=== PATIENT | male | born 1990 | race Caucasian/White ===

== ENCOUNTER 2016-11-15 16:36 | Emergency (ER) | payer OTHER ==
[~2016-11-15] VITALS: Ht 187.9 cm; Wt 117.9 kg
[~2016-11-15 16:36] MED LIST: AMOXICILLIN500 MG PO; ATARAX50 MG PO; CLARITIN10 MG PO; CORDROL20 MG PO; DUONEB 3 MG/3 ML3 M1 INH; ELIMITE 5%60 GM PO; ELIMITE 5%60 GM TP; Elimite 5%60 GM TP; HYCODAN/HYDROMET5 ML PO; HYDROCODONE BIT1 T11 PO; KEFLEX500 MG PO; LEVAQUIN750 MG PO; LOMOTIL 0.025 M1 TA1 PO; MEDROL DOSEPAK4 MG PO; MOTRIN800 MG PO; NAPROSYN500 MG PO; NO DAILY MEDS; NORCO 325 MG-51 TAB PO; PREDNISONE10 MG PO; PROVENTIL0.09 MG/A1 INH; SEPTRA DS 800 M1 TAB PO; TRAMADOL HCL50 MG PO; VENTOLIN 02.5 MG/3 M INH; VIBRAMYCIN100 MG PO; VISTARIL25 MG PO; ZITHROMAX250 MG PO; ZOFRAN ODT4 MG SL; ZOFRAN4 MG PO
[2016-11-15] MEDS ORDERED: NAPROSYN500 MG PO (16:58)
[2016-11-15] MEDS ORDERED: 'PARAFON FORTE500 M1 PO (16:58)
[2016-11-15 17:15] VITALS: BP 144/104
== END 2016-11-15 18:00 | disposition home or self-care (01) ==
LOC: ED 16:36
DX: S16.1XXA Strain of muscle, fascia and tendon at neck level, initial encounter (principal); S29.012A Strain of muscle and tendon of back wall of thorax, initial encounter; F17.200 Nicotine dependence, unspecified, uncomplicated; V89.2XXA Person injured in unspecified motor-vehicle accident, traffic, initial encounter; Y93.89 Activity, other specified; Y92.413 State road as the place of occurrence of the external cause; Y99.9 Unspecified external cause status

== ENCOUNTER 2017-04-04 00:59 | Emergency (ER) | payer OTHER ==
[~2017-04-04] VITALS: Ht 187.9 cm; Wt 129.3 kg
[~2017-04-04 00:59] MED LIST changes: +'PARAFON FORTE500 M1 PO
[2017-04-04 01:21] VITALS: BP 149/96
[2017-04-04] MEDS ORDERED: DELTASONE20 M1 PO (01:44)
[2017-04-04] MEDS ORDERED: PEPCID20 MG PO (01:44)
[2017-04-04] MEDS ORDERED: BENADRYL ALLERG25 M5 PO (01:44)
== END 2017-04-04 02:05 | disposition home or self-care (01) ==
LOC: ED 00:59
DX: L50.9 Urticaria, unspecified (principal); F32.9 Major depressive disorder, single episode, unspecified

== ENCOUNTER 2017-11-21 11:00 | Emergency (ER) | payer SELFPAY ==
[~2017-11-21] VITALS: Ht 187.9 cm; Wt 129.3 kg
[~2017-11-21 11:00] MED LIST changes: +BENADRYL ALLERG25 M5 PO; +DELTASONE20 M1 PO; +PEPCID20 MG PO
[2017-11-21 11:05] VITALS: BP 150/97
[2017-11-21 11:23] LABS: BASO # 0.1 10*3/uL (0.0-0.1); BASO % 0.6 % (0.0-1.0); EOS # 0.6 10*3/uL (0.0-0.4); EOS % 5.1 % (1.0-4.0); HEMATOCRIT 49.9 % (42.0-52.0); HEMOGLOBIN 17.5 g/dl (14.0-18.0); LYMPH # 2.1 10*3/uL (1.3-4.4); LYMPH % 19.5 % (27.0-41.0); MEAN CORPUSCULAR HGB 29.5 pg (27.0-31.0); MEAN CORPUSCULAR HGB CONC 35.1 g/dl (33.0-37.0); MEAN PLATELET VOLUME 10.8 fl (9.6-12.3); MONO # 0.6 10*3/uL (0.1-1.0); MONO % 5.7 % (3.0-9.0); NEUT # 7.5 10*3/uL (2.3-7.9); NEUT % 68.7 % (47.0-73.0); PLATELET COUNT AUTOMATED 224 10*3/uL (130-400); RED BLOOD COUNT 5.94 10*6/uL (4.50-5.90); RED CELL DISTRI WIDTH 12.3 % (0-14.5); WHITE BLOOD COUNT 10.9 10*3/uL (4.8-10.8)
[2017-11-21 11:37] LABS: ALBUMIN 3.6 gm/dl (3.1-4.5); ALKALINE PHOSPHATASE 83 U/L (45-117); BUN 10 mg/dl (7-24); CHLORIDE 102 mmol/L (98-107); CREATININE 0.98 mg/dL (0.70-1.30); LIPASE 90 U/L (73-393); POTASSIUM 4.1 mmol/L (3.5-5.1); SGOT/AST 34 IU/L (3-35); SGPT/ALT 74 U/L (12-78); SODIUM 138 mmol/L (136-145); TOTAL PROTEIN 7.6 gm/dL (6.4-8.2)
[2017-11-21] MEDS ORDERED: ZOFRAN4 MG PO (11:56)
== END 2017-11-21 12:41 | disposition home or self-care (01) ==
LOC: ED 11:00
PROVIDERS: Nurse Practitioner Family
DX: K52.9 Noninfective gastroenteritis and colitis, unspecified (principal); R03.0 Elevated blood-pressure reading, without diagnosis of hypertension

== ENCOUNTER 2017-12-26 12:04 | Emergency (ER) | payer SELFPAY ==
[~2017-12-26] VITALS: Ht 187.9 cm; Wt 129.3 kg
[2017-12-26 12:30] VITALS: BP 129/86
[2017-12-26] MEDS ORDERED: AMOXICILLIN500 M2 PO (13:06)
== END 2017-12-26 13:26 | disposition home or self-care (01) ==
LOC: ED 12:04
DX: K08.89 Other specified disorders of teeth and supporting structures (principal); Z79.899 Other long term (current) drug therapy

== ENCOUNTER 2017-12-31 18:15 | Emergency (ER) | payer SELFPAY ==
[~2017-12-31] VITALS: Ht 187.9 cm; Wt 129.3 kg
[~2017-12-31 18:15] MED LIST changes: +AMOXICILLIN500 M2 PO
[2017-12-31 18:21] VITALS: BP 147/81
[2017-12-31] MEDS ORDERED: CLINDAMYCIN HC300 MG PO (18:42)
[2017-12-31] MEDS ORDERED: NAPROSYN500 MG PO (18:42)
== END 2017-12-31 18:52 | disposition home or self-care (01) ==
LOC: ED 18:15
DX: K08.89 Other specified disorders of teeth and supporting structures (principal); K04.7 Periapical abscess without sinus

== ENCOUNTER 2018-03-10 10:51 | Emergency (ER) | payer SELFPAY ==
[~2018-03-10] VITALS: Ht 187.9 cm; Wt 129.3 kg
[~2018-03-10 10:51] MED LIST changes: +CLINDAMYCIN HC300 MG PO
[2018-03-10 10:52] VITALS: BP 137/99
[2018-03-10] MEDS ORDERED: AMOXICILLIN500 M2 PO (11:06)
[2018-03-10] MEDS ORDERED: FLONASE ALLERG9.9 ML NAS (11:06)
[2018-03-10] MEDS ORDERED: ZYRTEC10 MG PO (11:06)
== END 2018-03-10 11:45 | disposition home or self-care (01) ==
LOC: ED 10:51
DX: J01.90 Acute sinusitis, unspecified (principal)

== ENCOUNTER 2018-04-21 18:28 | Emergency (ER) | payer SELFPAY ==
[~2018-04-21] VITALS: Ht 187.9 cm; Wt 129.3 kg
[~2018-04-21 18:28] MED LIST changes: +FLONASE ALLERG9.9 ML NAS; +ZYRTEC10 MG PO
[2018-04-21 19:12] VITALS: BP 165/83
[2018-04-21] MEDS ORDERED: CYCLOBENZAPRINE5 M3 PO (20:33)
[2018-04-21] MEDS ORDERED: PREDNISONE10 MG PO (20:38)
== END 2018-04-21 20:07 | disposition home or self-care (01) ==
LOC: ED 18:28
DX: M54.5 Low back pain (principal); Z79.899 Other long term (current) drug therapy; X50.1XXA Overexertion from prolonged static or awkward postures, initial encounter; Y93.89 Activity, other specified; Y92.89 Other specified places as the place of occurrence of the external cause; Y99.9 Unspecified external cause status

== ENCOUNTER 2019-12-21 13:36 | Emergency (ER) | payer SELFPAY ==
[~2019-12-21] VITALS: Ht 187.9 cm; Wt 154.2 kg
[~2019-12-21 13:36] MED LIST changes: +CYCLOBENZAPRINE5 M3 PO
[2019-12-21 13:42] VITALS: BP 150/88
[2019-12-21 14:30] LABS: BASO % 0.3 % (0.0-1.0); EOS # 0.1 10*3/uL (0.0-0.4); EOS % 1.5 % (1.0-4.0); HEMATOCRIT 50.2 % (42.0-52.0); HEMOGLOBIN 17.1 g/dl (14.0-18.0); LYMPH # 1.2 10*3/uL (1.3-4.4); LYMPH % 12.4 % (27.0-41.0); MEAN CELL VOLUME 86.7 fl (80.0-94.0); MEAN CORPUSCULAR HGB 29.5 pg (27.0-31.0); MEAN CORPUSCULAR HGB CONC 34.1 g/dl (33.0-37.0); MEAN PLATELET VOLUME 10.7 fl (9.6-12.3); MONO % 10.8 % (3.0-9.0); NEUT % 74.5 % (47.0-73.0); PLATELET COUNT AUTOMATED 188 10*3/uL (130-400); RED BLOOD COUNT 5.79 10*6/uL (4.50-5.90); RED CELL DISTRI WIDTH 12.1 % (0-14.5); WHITE BLOOD COUNT 9.4 10*3/uL (4.8-10.8)
[2019-12-21 14:46] LABS: ALBUMIN 3.5 gm/dl (3.1-4.5); ALKALINE PHOSPHATASE 92 U/L (45-117); BUN 12 mg/dl (7-24); CHLORIDE 101 mmol/L (98-107); CREATININE 1.02 mg/dL (0.70-1.30); POTASSIUM 4.1 mmol/L (3.5-5.1); SGOT/AST 37 IU/L (3-35); SGPT/ALT 81 U/L (12-78); SODIUM 136 mmol/L (136-145); TOTAL PROTEIN 7.2 gm/dL (6.4-8.2)
[2019-12-21] MEDS ORDERED: ZOFRAN4 MG PO (15:14)
[2019-12-21] MEDS ORDERED: TAMIFLU 75MG CA75 MG PO (15:14)
== END 2019-12-21 15:17 | disposition home or self-care (01) ==
LOC: ED 13:36
PROVIDERS: Nurse Practitioner Family
DX: R05 Cough (principal); R09.89 Other specified symptoms and signs involving the circulatory and respiratory systems; R68.83 Chills (without fever); R09.81 Nasal congestion; M79.10 Myalgia, unspecified site; I10 Essential (primary) hypertension

== ENCOUNTER 2021-02-19 09:55 | Emergency (ER) | payer OTHER ==
[~2021-02-19] VITALS: Ht 187.9 cm; Wt 163.3 kg
[~2021-02-19 09:55] MED LIST changes: +TAMIFLU 75MG CA75 MG PO
[2021-02-19 10:35] LABS: BASO % 0.3 % (0.0-1.0); EOS # 0.2 10*3/uL (0.0-0.4); HEMATOCRIT 49.1 % (42.0-52.0); LYMPH # 2.4 10*3/uL (1.3-4.4); LYMPH % 20.2 % (27.0-41.0); MEAN CELL VOLUME 88.6 fl (80.0-94.0); MEAN CORPUSCULAR HGB 30.3 pg (27.0-31.0); MEAN CORPUSCULAR HGB CONC 34.2 g/dl (33.0-37.0); MEAN PLATELET VOLUME 10.9 fl (9.6-12.3); MONO # 0.9 10*3/uL (0.1-1.0); MONO % 7.2 % (3.0-9.0); NEUT # 8.2 10*3/uL (2.3-7.9); NEUT % 69.8 % (47.0-73.0); PLATELET COUNT AUTOMATED 207 10*3/uL (130-400); RED BLOOD COUNT 5.54 10*6/uL (4.50-5.90); RED CELL DISTRI WIDTH 11.9 % (0-14.5); WHITE BLOOD COUNT 11.8 10*3/uL (4.8-10.8)
[2021-02-19 10:58] LABS: ALBUMIN 3.2 gm/dl (3.1-4.5); ALKALINE PHOSPHATASE 86 U/L (45-117); BUN 16 mg/dl (7-24); CHLORIDE 105 mmol/L (98-107); LIPASE 72 U/L (73-393); POTASSIUM 4.1 mmol/L (3.5-5.1); SGOT/AST 41 IU/L (3-35); SGPT/ALT 90 U/L (12-78); SODIUM 138 mmol/L (136-145); TOTAL PROTEIN 7.2 gm/dL (6.4-8.2)
[2021-02-19 11:00] LABS: TROPONIN I < 0.015 ng/ml (<0.045)
[2021-02-19 12:36] VITALS: BP 122/72
[2021-02-19] MEDS ORDERED: IBUPROFEN600 MG PO (14:10)
== END 2021-02-19 14:35 | disposition home or self-care (01) ==
LOC: ED 09:55
PROVIDERS: Physician Assistant
DX: R07.89 Other chest pain (principal); Z79.899 Other long term (current) drug therapy

== ENCOUNTER 2024-02-11 10:01 | Emergency (ER) | payer BC ==
[~2024-02-11] VITALS: Ht 190.5 cm; Wt 172.4 kg
[~2024-02-11 10:01] MED LIST changes: +IBUPROFEN600 MG PO
[2024-02-11] MEDS ORDERED: MORPHINE Sulfate 2 MG/ML SYR IV ONE (10:20)
[2024-02-11] MEDS ORDERED: Ondansetron Hydrochloride 4 MG/2 ML VIAL IV ONE (10:20)
[2024-02-11] MEDS ORDERED: Labetalol Hydrochloride 20 MG/4 ML SYR IV ONE (10:20)
[2024-02-11 10:42] LABS: BASO % 0.3 % (0.0-1.0); EOS # 0.3 10*3/uL (0.0-0.4); EOS % 3.2 % (1.0-4.0); HEMATOCRIT 49.6 % (42.0-52.0); LYMPH # 1.7 10*3/uL (1.3-4.4); LYMPH % 21.7 % (27.0-41.0); MEAN CELL VOLUME 88.9 fl (80.0-94.0); MEAN CORPUSCULAR HGB 29.6 pg (27.0-31.0); MEAN CORPUSCULAR HGB CONC 33.3 g/dl (33.0-37.0); MEAN PLATELET VOLUME 10.3 fl (9.6-12.3); MONO # 0.6 10*3/uL (0.1-1.0); MONO % 7.8 % (3.0-9.0); NEUT # 5.2 10*3/uL (2.3-7.9); NEUT % 66.7 % (47.0-73.0); PLATELET COUNT AUTOMATED 182 10*3/uL (130-400); RED BLOOD COUNT 5.58 10*6/uL (4.50-5.90); RED CELL DISTRI WIDTH 12.5 % (0-14.5); WHITE BLOOD COUNT 7.7 10*3/uL (4.8-10.8)
[2024-02-11 10:56] LABS: ALKALINE PHOSPHATASE 74 U/L (46-116); BUN 11 mg/dl (9-23); CHLORIDE 103 mmol/L (98-107); SGPT/ALT 97 U/L (5-49); TOTAL PROTEIN 6.9 gm/dL (6.0-8.0)
[2024-02-11 10:58] LABS: POTASSIUM 4.4 mmol/L (3.4-5.1)
[2024-02-11] MEDS ORDERED: LASIX20 MG PO (11:27)
[2024-02-11] MEDS ORDERED: NORVASC10 MG PO (11:27)
[2024-02-11 12:13] VITALS: BP 143/72
== END 2024-02-11 12:12 | disposition home or self-care (01) ==
LOC: ED 10:01
PROVIDERS: Emergency Medicine
DX: R07.89 Other chest pain (principal); I16.0 Hypertensive urgency; Z98.890 Other specified postprocedural states